=== PATIENT | female | born 1950 | race Caucasian/White ===

== ENCOUNTER → 2017-02-03 | Outpatient (CLI) | payer MEDICARE, OTHER ==
[~2017-02-03] MED LIST: CIPR500T3 PO; METF10002 PO; METR500T PO; OXYC5TAB3 PO
== END | disposition home or self-care (01) ==
LOC: CFH 10:10
PROVIDERS: ATTEND Family Medicine
DX: M25.561 Pain in right knee (principal)

== ENCOUNTER → 2017-09-28 | Outpatient (CLI) | payer MEDICARE, OTHER ==
[2017-09-28 16:07] LABS: BASOPHILS # (AUTO) 0.02 x10^3/uL (0-0.1); BASOPHILS % (AUTO) 0 % (0-1); EOSINOPHILS # (AUTO) 0.42 x10^3/uL (0-0.4); EOSINOPHILS % (AUTO) 7 % (1-7); LYMPHOCYTES # (AUTO) 1.61 x10^3/uL (1-3.4); LYMPHOCYTES % (AUTO) 26 % (22-44); MD NO; MEAN CORPUSCULAR VOLUME 91.3 fL (80-100); MEAN PLATELET VOLUME 9.4 fL (7.4-10.4); MONOCYTES # (AUTO) 0.54 x10^3/uL (0.2-0.8); MONOCYTES % (AUTO) 9 % (2-9); NEUTROPHILS % (AUTO) 58 % (42-75); PLATELET COUNT 135 x10^3/uL (130-400); RED BLOOD COUNT 4.25 x10^6/uL (3.82-5.3); RED CELL DISTRIBUTION WIDTH 13.6 % (9.6-15.2)
[2017-09-28 16:13] LABS: ALANINE AMINOTRANSFERASE 41 U/L (12-78); ALBUMIN 3.7 g/dL (3.4-5.0); ANION GAP 12 mmol/L (5-15); CALCIUM 9.2 mg/dL (8.5-10.1); CHLORIDE 107 mmol/L (98-107); CREATININE 1.28 mg/dL (0.55-1.02)
[2017-09-28 16:15] LABS: ALKALINE PHOSPHATASE 48 U/L (45-117); BILIRUBIN,TOTAL 0.4 mg/dL (0.2-1.0); TOTAL PROTEIN 7.6 g/dL (6.4-8.2)
== END | disposition home or self-care (01) ==
LOC: LAB 15:46
PROVIDERS: ATTEND Family Medicine
DX: R10.9 Unspecified abdominal pain (principal)
CPT/HCPCS: 36415; 80053; 82150; 83690; 85025

== ENCOUNTER → 2018-04-29 | Outpatient (CLI) | payer MEDICARE, OTHER ==
[~2018-04-29] MED LIST changes: +OMNIPAQUE 350 MG/ML, 100ML BOTTLE ONE
== END | disposition home or self-care (01) ==
LOC: CFH 10:44
PROVIDERS: ATTEND Family Medicine
DX: K57.30 Diverticulosis of large intestine without perforation or abscess without bleeding (principal); E11.9 Type 2 diabetes mellitus without complications; Z88.0 Allergy status to penicillin; Z90.49 Acquired absence of other specified parts of digestive tract
CPT/HCPCS: 74177; Q9967

== ENCOUNTER → 2018-05-24 | Outpatient (CLI) | payer MEDICARE, OTHER ==
[~2018-05-24] MED LIST changes: -OMNIPAQUE 350 MG/ML, 100ML BOTTLE ONE
== END | disposition home or self-care (01) ==
LOC: RAD 11:26
PROVIDERS: ATTEND Nurse Practitioner Family
DX: N20.0 Calculus of kidney (principal)
CPT/HCPCS: 78707; A9562

== ENCOUNTER → 2018-07-20 | Outpatient (CLI) | payer MEDICARE, OTHER | END | disposition home or self-care (01) | LOC: CFH 13:28 | PROVIDERS: ATTEND Family Medicine | DX: Z13.820 Encounter for screening for osteoporosis (principal); M51.34 Other intervertebral disc degeneration, thoracic region; N95.9 Unspecified menopausal and perimenopausal disorder; E11.9 Type 2 diabetes mellitus without complications | CPT/HCPCS: 72146; 77080 ==

== ENCOUNTER 2019-02-21 12:58 | Outpatient (CLI) | payer MEDICARE, OTHER ==
[~2019-02-21 12:58] MED LIST changes: +ENAL20TA PO
== END 2019-02-21 23:59 | disposition home or self-care (01) ==
LOC: CFH 12:58
PROVIDERS: ATTEND Family Medicine
DX: Z12.31 Encounter for screening mammogram for malignant neoplasm of breast (principal); M47.814 Spondylosis without myelopathy or radiculopathy, thoracic region; M48.02 Spinal stenosis, cervical region; M51.24 Other intervertebral disc displacement, thoracic region; M85.88 Other specified disorders of bone density and structure, other site
CPT/HCPCS: 72146; 76705; 77063; 77067; 77080

== ENCOUNTER 2019-06-06 11:14 | Outpatient (CLI) | payer MEDICARE, OTHER | END 2019-06-06 23:59 | disposition home or self-care (01) | LOC: CFH 11:14 | PROVIDERS: ATTEND Family Medicine | DX: J18.9 Pneumonia, unspecified organism (principal) ==

== ENCOUNTER 2019-10-06 10:52 | Emergency (ER) | payer MEDICARE, OTHER ==
[~2019-10-06] VITALS: Ht 165.1 cm; Wt 80.8 kg
[2019-10-06 11:48] LABS: BASOPHILS # (AUTO) 0.01 x10^3/uL (0-0.1); BASOPHILS % (AUTO) 0 % (0-1); EOSINOPHILS # (AUTO) 0.11 x10^3/uL (0-0.4); EOSINOPHILS % (AUTO) 1 % (1-7); LYMPHOCYTES # (AUTO) 1.05 x10^3/uL (1-3.4); LYMPHOCYTES % (AUTO) 11 % (22-44); MD NO; MEAN CORPUSCULAR HEMOGLOBIN 31.6 pg (27.0-34.8); MEAN CORPUSCULAR HGB CONC 33.6 g/dL (32.4-35.8); MEAN CORPUSCULAR VOLUME 94.1 fL (80-100); MEAN PLATELET VOLUME 9.8 fL (7.4-10.4); MONOCYTES # (AUTO) 0.94 x10^3/uL (0.2-0.8); MONOCYTES % (AUTO) 10 % (2-9); NEUTROPHILS # (AUTO) 7.13 x10^3/uL (1.8-6.8); NEUTROPHILS % (AUTO) 77 % (42-75); PLATELET COUNT 160 x10^3/uL (130-400); RED BLOOD COUNT 4.43 x10^6/uL (3.82-5.3); RED CELL DISTRIBUTION WIDTH 13.8 % (9.6-15.2)
[2019-10-06 11:59] LABS: ALBUMIN 3.6 g/dL (3.4-5.0); ANION GAP 7 mmol/L (5-15); CALCIUM 10.1 mg/dL (8.5-10.1); CHLORIDE 102 mmol/L (98-107)
[2019-10-06 12:02] LABS: ALANINE AMINOTRANSFERASE 45 U/L (12-78); ALKALINE PHOSPHATASE 65 U/L (45-117); CREATININE 1.49 mg/dL (0.55-1.02); TOTAL PROTEIN 8.2 g/dL (6.4-8.2)
--- NOTE | 2019-10-06 12:11 | NUR ---
Pt ambulated independently to ED room 03 from [facility] in [facility] at this time
[2019-10-06 12:22] LABS: MICROSCOPIC NOT IND
--- NOTE | 2019-10-06 12:30 | NUR ---
Late Entry: Pt ambulated to room 3. Changed into gown, resting in bed with call light in reach, at bedside, given blankets for comfort. Respirations are even and unlabored. Symmetrical chest rise and fall. NAD and denies any additional needs at this time. WCTM
[2019-10-06 12:31] LABS: CULTURE INDICATED? NO
[2019-10-06] MEDS ORDERED: ONDANSETRON 2MG/ML, 2ML IVPush ONE ×2 (13:30→16:30)
[2019-10-06] MEDS ORDERED: ONDANSETRON 2MG/ML, 2ML ONE ×2 (13:32→16:31)
[2019-10-06] MEDS ORDERED: MORPHINE SULFATE 4 MG/ML, 1ML ONE ×2 (13:33→14:50)
[2019-10-06] MEDS: MORPHINE SULFATE 4 MG/ML, 1ML IVPush PRN ×2 (14:00→15:00)
--- NOTE | 2019-10-06 14:10 | NUR ---
BREAK NOTE: IV ACCESS ESTABLISHED. PT. WAS MEDICATED FOR PAIN ORDERED. PT. IS RESTING WITHOUT CONCERNS. PT.'S SIDERAILS REMAIN UP X 2 WITH THE CALL LIGHT IN PLACE.
--- NOTE | 2019-10-06 14:40 | NUR ---
Late Entry: Pt resting in bed, at bedside. Waiting for antibiotics to finish running to dc pt. NAD, denies any additional needs at this time. Pt call light is within reach. WCTM.
[2019-10-06] MEDS ORDERED: METRONIDAZOLE PMX 500MG/100ML 100 ML ONE (14:50)
[2019-10-06] MEDS ORDERED: CEFTRIAXONE PMX 1GM/50ML 50 ML ONE (14:50)
[2019-10-06] MEDS ORDERED: CEFTRIAXONE PMX 1GM/50ML 50 ML IV ONE (15:00)
[2019-10-06] MEDS ORDERED: METRONIDAZOLE PMX 500MG/100ML 100 ML IV ONE (15:00)
--- NOTE | 2019-10-06 15:40 | NUR ---
Late Entry: Pt resting, at bedside. ABX infusion, pt to be dc after antibiotics. NAD, denies additional needs at this time. WCTM
--- NOTE | 2019-10-06 16:40 | NUR ---
Late Entry: Pt resting, at bedside. ABX infusion, pt to be dc after antibiotics. NAD, denies additional needs at this time. WCTM
[2019-10-06 17:59] VITALS: BP 128/73
== END 2019-10-06 18:08 | disposition home or self-care (01) ==
LOC: ED 13:38
DX: K57.32 Diverticulitis of large intestine without perforation or abscess without bleeding (principal); N39.0 Urinary tract infection, site not specified; I10 Essential (primary) hypertension; E11.9 Type 2 diabetes mellitus without complications
CPT/HCPCS: 36415; 74176; 80053; 81003; 85025; 96365; 96366; 96368; 96375; 96376; 99285; J0696; J2270; J2405; 96367

== ENCOUNTER 2020-11-12 07:09 | Observation (INO) | payer MEDICARE, OTHER ==
[~2020-11-12] VITALS: Ht 165.1 cm; Wt 80.8 kg
[~2020-11-12 07:09] MED LIST changes: -CIPR500T3 PO; +CIPR500T4 PO; -ENAL20TA PO; +ENAL20TA9 PO; -OXYC5TAB3 PO; +OXYC5TAB98 PO
[2020-11-12] MEDS ORDERED: ONDANSETRON 2MG/ML, 2ML IVPush ONE (07:30)
[2020-11-12] MEDS ORDERED: SODIUM CHLORIDE 0.9% 1,000ML IVBOLUS ONE ×2 (07:30→09:00)
[2020-11-12] MEDS ORDERED: KETOROLAC 30 MG/1 ML IVPush ONE (07:30)
[2020-11-12] MEDS ORDERED: ONDANSETRON 2MG/ML, 2ML ONE ×2 (07:43→15:17)
[2020-11-12] MEDS ORDERED: KETOROLAC 30 MG/1 ML ONE (07:43)
[2020-11-12] MEDS ORDERED: SODIUM CHLORIDE FLUSH 10ML SYR IVF ONE (08:00)
[2020-11-12] MEDS ORDERED: MORPHINE SULFATE 4 MG/ML, 1ML ONE (08:03)
[2020-11-12 08:13] LABS: BASOPHILS % (AUTO) 1 % (0-1); EOSINOPHILS % (AUTO) 4 % (1-7); LYMPHOCYTES % (AUTO) 19 % (22-44); MEAN CORPUSCULAR HEMOGLOBIN 31.8 pg (27.0-34.8); MEAN CORPUSCULAR HGB CONC 33.8 g/dL (32.4-35.8); MEAN PLATELET VOLUME 8.9 fL (7.4-10.4); MONOCYTES % (AUTO) 12 % (2-9); NEUTROPHILS % (AUTO) 65 % (42-75); PLATELET COUNT 120 x10^3/uL (130-400); RED BLOOD COUNT 3.99 x10^6/uL (3.82-5.3); RED CELL DISTRIBUTION WIDTH 13.7 % (9.6-15.2)
[2020-11-12 08:14] LABS: MD NO
[2020-11-12] MEDS: MORPHINE SULFATE 4 MG/ML, 1ML IVPush PRN ×3 (08:21→10:41)
[2020-11-12 08:23] LABS: ANION GAP 10 mmol/L (5-15); CALCIUM 9.9 mg/dL (8.5-10.1); CHLORIDE 105 mmol/L (98-107); CREATININE 1.52 mg/dL (0.55-1.02)
--- NOTE | 2020-11-12 08:28 | NUR ---
LLQ ABD PAIN/ LL BACK PAIN THAT WOKE PATIENT UP THIS AM. TOOK 400MG IBUPROFEN AT 0700. HX OF DIVERTICULITIS. PROVIDER AT BEDSIDE FOR EVALUATION. PT MEDICATED PER EMAR. VSS. CARNEY. AT BEDSIDE.
[2020-11-12 08:49] LABS: MICROSCOPIC AUTO
[2020-11-12] MEDS ORDERED: OMNIPAQUE 350 MG/ML, 100ML BOTTLE ONE (08:49)
--- NOTE | 2020-11-12 08:51 | NUR ---
PT BACK FROM CT, VSS, NADN, STATES SOME RELIEF IN PAIN
--- NOTE | 2020-11-12 10:06 | NUR ---
FLAVIA SHERMAN AT BEDSIDE FOR EVALUATION, NADN, VSS.
[2020-11-12] MEDS ORDERED: ONDANSETRON 2MG/ML, 2ML IVPush PRN ×2 (10:30→15:00)
[2020-11-12] MEDS ORDERED: ONDANSETRON ODT 4 MG PO PRN (10:30)
[2020-11-12] MEDS ORDERED: DOCUSATE 100 MG CAPSULE PO PRN (10:30)
[2020-11-12] MEDS ORDERED: DEXTROSE 50%, 50ML SYRINGE IVPush PRN (10:30)
[2020-11-12] MEDS ORDERED: HYDROcodone/APAP 5/325 TABLET PO PRN (10:30)
[2020-11-12] MEDS ORDERED: LABETALOL 5MG/ML, 20ML IVPush PRN (10:30)
[2020-11-12] MEDS ORDERED: DEXTROSE 4 GM TAB.CHEW PO PRN (10:30)
[2020-11-12] MEDS ORDERED: ACETAMINOPHEN 325 MG TABLET PO PRN ×2 (10:30→15:00)
[2020-11-12] MEDS ORDERED: ENALAPRILAT 1.25 MG/ML, 2ML IVPush PRN (10:30)
[2020-11-12] MEDS ORDERED: BISACODYL 10 MG SUPP PR PRN (10:30)
[2020-11-12] MEDS ORDERED: MELATONIN 5 MG TABLET PO PRN (10:30)
[2020-11-12] MEDS ORDERED: POLYETHYLENE GLYCOL 17 GM PACKET PO PRN (10:30)
[2020-11-12] MEDS ORDERED: GLUCAGON 1 MG IM PRN (10:30)
--- NOTE | 2020-11-12 10:37 | NUR ---
report called to Archana SCHWAB all question answered
[2020-11-12] MEDS: INSULIN LISPRO 100 UNITS/ML, PEN SQ-INSULIN SCH ×3 (11:00→20:36)
[2020-11-12] MEDS: SODIUM CHLORIDE 0.9% 1,000 ML IV SCH (11:03)
[2020-11-12 11:50] VITALS: BP 160/83
[2020-11-12 12:09] VITALS: BP 160/83
[2020-11-12] MEDS ORDERED: ASPI-963 PO (12:51)
[2020-11-12] MEDS ORDERED: CHOL10003 PO (12:56)
[2020-11-12] MEDS: morphine SULFATE 10 MG/ML, 1ML IVPush PRN ×2 (13:45→23:40)
[2020-11-12] MEDS ORDERED: MIDAZOLAM 1 MG/ML, 2ML ONE (14:19)
[2020-11-12] MEDS ORDERED: FENTANYL PF 250 MCG/5ML ONE (14:19)
[2020-11-12] MEDS ORDERED: PROPOFOL 10 MG/ML, 20ML ONE (14:20)
[2020-11-12] MEDS ORDERED: CHLORHEXIDINE 15 ML UDC PO ONE (14:30)
[2020-11-12] MEDS ORDERED: CEFAZOLIN 1,000 MG ONE ×2 (14:42)
[2020-11-12] MEDS ORDERED: DEXAMETHASONE 4 MG/ML, 1ML ONE (14:42)
[2020-11-12] MEDS ORDERED: FENTANYL PF 100 MCG/2ML IV PRN (15:00)
[2020-11-12] MEDS ORDERED: LABETALOL 5MG/ML, 20ML IV PRN (15:00)
[2020-11-12] MEDS ORDERED: PROMETHAZINE 25 MG/ML, 1ML IVPush PRN (15:00)
[2020-11-12] MEDS ORDERED: HYDROmorphone 1 MG/ML, 1ML INJ IVPush PRN (15:00)
[2020-11-12] MEDS ORDERED: hydrALAzine 20 MG/ML, 1ML IV PRN (15:00)
[2020-11-12] MEDS ORDERED: OXYcodone 5 MG/5 ML ORAL.SOL UDC PO PRN (15:00)
[2020-11-12 19:37] VITALS: BP 144/82
[2020-11-12] MEDS: SODIUM CHLORIDE FLUSH 10ML SYR IVF SCH (20:37)
[2020-11-13 01:27] VITALS: BP 151/85
[2020-11-13 05:17] LABS: BASOPHILS % (AUTO) 0 % (0-1); EOSINOPHILS % (AUTO) 0 % (1-7); LYMPHOCYTES % (AUTO) 15 % (22-44); MEAN CORPUSCULAR HEMOGLOBIN 31.5 pg (27.0-34.8); MEAN PLATELET VOLUME 9.1 fL (7.4-10.4); MONOCYTES % (AUTO) 8 % (2-9); NEUTROPHILS % (AUTO) 78 % (42-75); PLATELET COUNT 135 x10^3/uL (130-400); RED BLOOD COUNT 3.93 x10^6/uL (3.82-5.3); RED CELL DISTRIBUTION WIDTH 13.6 % (9.6-15.2)
[2020-11-13 05:21] LABS: MD NO
[2020-11-13 05:30] LABS: CHLORIDE 108 mmol/L (98-107)
[2020-11-13 05:36] LABS: ANION GAP 6 mmol/L (5-15); CALCIUM 9.1 mg/dL (8.5-10.1); CREATININE 1.33 mg/dL (0.55-1.02)
[2020-11-13] MEDS: SODIUM CHLORIDE 0.9% 1,000 ML IV SCH (05:54)
[2020-11-13 06:26] LABS: TROPONIN I < 0.015 ng/mL (0.000-0.045)
[2020-11-13 07:17] VITALS: BP 139/69
[2020-11-13] MEDS: SODIUM CHLORIDE FLUSH 10ML SYR IVF SCH (07:54)
[2020-11-13] MEDS: INSULIN LISPRO 100 UNITS/ML, PEN SQ-INSULIN SCH ×2 (07:54→11:50)
== END 2020-11-13 12:44 | disposition home or self-care (01) ==
LOC: ED 07:43 → EDIP 09:54 → INTOOBSV 09:54 → 3N 10:32
PROVIDERS: ADMIT Internal Medicine; ATTEND Hospitalist
DX: N13.2 Hydronephrosis with renal and ureteral calculous obstruction (principal); Z20.822 Contact with and (suspected) exposure to COVID-19; I12.9 Hypertensive chronic kidney disease with stage 1 through stage 4 chronic kidney disease, or unspecified chronic kidney disease; E11.22 Type 2 diabetes mellitus with diabetic chronic kidney disease; N18.30 Chronic kidney disease, stage 3 unspecified; E66.9 Obesity, unspecified; K74.60 Unspecified cirrhosis of liver; Z80.41 Family history of malignant neoplasm of ovary; Z90.710 Acquired absence of both cervix and uterus
CPT/HCPCS: 36415; 52353; 74177; 80048; 81001; 82360; 82962; 83690; 84484; 85025; 87077; 87086; 87186; 87635; 88300; 93005; 96361; 96374; 96375; 96376; 99285; C1726; G0378; J0690; J1100; J1815; J2250; J2270; J2405; J2704; J3010; J7030; Q0162; Q9967

== ENCOUNTER 2020-12-19 12:08 | Inpatient (IN) | payer MEDICARE, OTHER ==
[~2020-12-19] VITALS: Ht 165.1 cm; Wt 78.3 kg
[~2020-12-19 12:08] MED LIST changes: +ASPI-963 PO; +CHOL10003 PO
--- NOTE | 2020-12-19 13:47 | NUR ---
SWATCHER: PT TO ROOM FROM [facility]
--- NOTE | 2020-12-19 14:03 | NUR ---
ASSUMED CARE OF PATIENT. PATIENT REPORTS CENTER LOWER ABD PAIN WTIH LOOSE STOOL. VS STABLE. DR DELACRUZ IN ROOM. CALL LIGHT IN PLACE. WILL CONTINUE TO MONITOR.
[2020-12-19 14:08] LABS: BASOPHILS % (AUTO) 0 % (0-1); EOSINOPHILS % (AUTO) 6 % (1-7); LYMPHOCYTES % (AUTO) 17 % (22-44); MEAN CORPUSCULAR HEMOGLOBIN 31.4 pg (27.0-34.8); MEAN CORPUSCULAR HGB CONC 33.6 g/dL (32.4-35.8); MEAN PLATELET VOLUME 9.2 fL (7.4-10.4); MONOCYTES % (AUTO) 10 % (2-9); NEUTROPHILS % (AUTO) 67 % (42-75); PLATELET COUNT 188 x10^3/uL (130-400); RED BLOOD COUNT 4.39 x10^6/uL (3.82-5.3); RED CELL DISTRIBUTION WIDTH 13.9 % (9.6-15.2)
[2020-12-19] MEDS ORDERED: ONDANSETRON 2MG/ML, 2ML ONE (14:08)
[2020-12-19] MEDS ORDERED: HYDROmorphone 1 MG/ML, 1ML INJ ONE (14:08)
[2020-12-19 14:09] LABS: MD NO
[2020-12-19 14:20] LABS: ALANINE AMINOTRANSFERASE 28 U/L (12-78); ALBUMIN 3.5 g/dL (3.4-5.0); ANION GAP 8 mmol/L (5-15); CALCIUM 10.4 mg/dL (8.5-10.1); CHLORIDE 108 mmol/L (98-107); CREATININE 1.55 mg/dL (0.55-1.02)
[2020-12-19 14:22] LABS: ALKALINE PHOSPHATASE 79 U/L (45-117); BILIRUBIN,TOTAL 0.6 mg/dL (0.2-1.0); TOTAL PROTEIN 7.4 g/dL (6.4-8.2)
[2020-12-19] MEDS ORDERED: SODIUM CHLORIDE FLUSH 10ML SYR IVF ONE (14:30)
[2020-12-19] MEDS ORDERED: SODIUM CHLORIDE 0.9% 1,000ML IVBOLUS ONE (14:30)
[2020-12-19] MEDS ORDERED: ONDANSETRON 2MG/ML, 2ML IVPush ONE (14:30)
[2020-12-19] MEDS ORDERED: HYDROmorphone 1 MG/ML, 1ML INJ IV ONE (14:30)
--- NOTE | 2020-12-19 15:09 | NUR ---
PT WENT TO CT
--- NOTE | 2020-12-19 15:22 | NUR ---
PT BACK FROM CT. PT RESTING IN ROOM. AT BEDSIDE. VS STABLE. CALL LIGHT IN PLACE. WILL CONTINUE TO MONITOR.
[2020-12-19] MEDS ORDERED: OMNIPAQUE 350 MG/ML, 100ML BOTTLE ONE (15:23)
--- NOTE | 2020-12-19 16:19 | NUR ---
HOSPITALIST IN ROOM
[2020-12-19 16:21] LABS: MICROSCOPIC INDICATED
[2020-12-19 16:30] VITALS: BP 104/70
[2020-12-19] MEDS ORDERED: METRONIDAZOLE PMX 500MG/100ML 100 ML IV ONE (16:30)
[2020-12-19] MEDS ORDERED: CEFOTETAN PMX 1GM/50ML 50 ML IVPB ONE (16:30)
--- NOTE | 2020-12-19 16:41 | NUR ---
NEW ORDERS FOR ABX PLACED AFTER REPORT WAS CALLED. PT GONE TO FLOOR. ABX NOT GIVEN. HOSEA, PRIMARY RN ON FLOOR CALLED AND AWARE. DR GODWIN ALSO AWARE.
[2020-12-19] MEDS ORDERED: hydrALAzine 20 MG/ML, 1ML IVPush PRN (17:00)
[2020-12-19 17:19] LABS: FREE T4 (FREE THYROXINE) 1.23 ng/dL (0.76-1.46)
[2020-12-19] MEDS: PLEASE ENTER ALLERGIES MC SCH (17:19)
[2020-12-19] MEDS ORDERED: MAGNESIUM SULFATE PMX 4GM/100M 100 ML IVPB ONE (17:30)
[2020-12-19] MEDS: morphine SULFATE 10 MG/ML, 1ML IVPush PRN ×2 (17:35→21:09)
[2020-12-19] MEDS: HEPARIN 5,000 UNITS/ML, 1ML SQ SCH (17:36)
[2020-12-19] MEDS: ACETAMINOPHEN 325 MG TABLET PO PRN (17:36)
[2020-12-19 17:49] VITALS: BP 104/70
[2020-12-19] MEDS: CEFTRIAXONE 2 GM in DEXTROSE 5% 50 ML IVPB SCH (18:17)
[2020-12-19] MEDS: METRONIDAZOLE PMX 500MG/100ML 100 ML IV SCH (19:30)
[2020-12-19] MEDS: SODIUM CHLORIDE FLUSH 10ML SYR IVF SCH (19:30)
[2020-12-19 19:51] VITALS: BP 115/59
[2020-12-19] MEDS: INSULIN LISPRO 100 UNITS/ML, PEN SQ-INSULIN SCH (20:57)
[2020-12-20 00:33] VITALS: BP 118/71
[2020-12-20 00:50] LABS: CLOSTRIDIUM DIFFICILE ANTIGEN POSITIVE; CLOSTRIDIUM DIFFICILE TOXIN NEGATIVE (Negative)
[2020-12-20] MEDS: PLEASE ENTER ALLERGIES MC SCH (01:03)
[2020-12-20] MEDS: HEPARIN 5,000 UNITS/ML, 1ML SQ SCH ×3 (01:34→15:40)
[2020-12-20] MEDS: METRONIDAZOLE PMX 500MG/100ML 100 ML IV SCH ×3 (03:56→19:44)
[2020-12-20] MEDS: morphine SULFATE 10 MG/ML, 1ML IVPush PRN ×3 (04:01→20:36)
[2020-12-20 05:42] LABS: BASOPHILS % (AUTO) 0 % (0-1); EOSINOPHILS % (AUTO) 9 % (1-7); LYMPHOCYTES % (AUTO) 18 % (22-44); MEAN CORPUSCULAR HGB CONC 34.6 g/dL (32.4-35.8); MEAN PLATELET VOLUME 9.4 fL (7.4-10.4); MONOCYTES % (AUTO) 12 % (2-9); NEUTROPHILS % (AUTO) 61 % (42-75); PLATELET COUNT 116 x10^3/uL (130-400); RED BLOOD COUNT 3.53 x10^6/uL (3.82-5.3); RED CELL DISTRIBUTION WIDTH 13.7 % (9.6-15.2)
[2020-12-20 05:49] LABS: CHLORIDE 107 mmol/L (98-107)
[2020-12-20 05:52] LABS: MD NO
[2020-12-20 06:01] LABS: ANION GAP 9 mmol/L (5-15); CALCIUM 8.9 mg/dL (8.5-10.1); CREATININE 1.33 mg/dL (0.55-1.02)
[2020-12-20] MEDS: INSULIN LISPRO 100 UNITS/ML, PEN SQ-INSULIN SCH ×4 (06:17→20:34)
[2020-12-20 06:40] VITALS: BP 109/67
[2020-12-20] MEDS: PANTOPRAZOLE 40MG TABLET PO SCH (07:48)
[2020-12-20] MEDS: LACTATED RINGERS 1,000 ML IV SCH ×2 (08:32→22:03)
[2020-12-20] MEDS: SODIUM CHLORIDE FLUSH 10ML SYR IVF SCH ×2 (08:38→20:34)
[2020-12-20] MEDS: SIMETHICONE 125 MG CHEW TAB PO SCH ×3 (11:42→20:34)
[2020-12-20 13:36] VITALS: BP 124/64
[2020-12-20] MEDS: ACETAMINOPHEN 325 MG TABLET PO PRN (15:40)
[2020-12-20] MEDS: CEFTRIAXONE 2 GM in DEXTROSE 5% 50 ML IVPB SCH (17:14)
[2020-12-20 19:40] VITALS: BP 105/59
[2020-12-20] MEDS: ONDANSETRON 2MG/ML, 2ML IVPush PRN (22:02)
[2020-12-21] MEDS: HEPARIN 5,000 UNITS/ML, 1ML SQ SCH ×3 (01:13→16:28)
[2020-12-21 02:24] VITALS: BP 127/59
[2020-12-21] MEDS: METRONIDAZOLE PMX 500MG/100ML 100 ML IV SCH ×3 (03:30→19:35)
[2020-12-21 06:01] LABS: BASOPHILS % (AUTO) 1 % (0-1); EOSINOPHILS % (AUTO) 19 % (1-7); LYMPHOCYTES % (AUTO) 23 % (22-44); MD NO; MEAN CORPUSCULAR HEMOGLOBIN 31.7 pg (27.0-34.8); MEAN CORPUSCULAR HGB CONC 34.1 g/dL (32.4-35.8); MEAN PLATELET VOLUME 9.6 fL (7.4-10.4); MONOCYTES % (AUTO) 14 % (2-9); NEUTROPHILS % (AUTO) 45 % (42-75); PLATELET COUNT 104 x10^3/uL (130-400); RED BLOOD COUNT 3.56 x10^6/uL (3.82-5.3); RED CELL DISTRIBUTION WIDTH 13.6 % (9.6-15.2)
[2020-12-21 06:14] LABS: ANION GAP 6 mmol/L (5-15); CALCIUM 8.4 mg/dL (8.5-10.1); CHLORIDE 111 mmol/L (98-107)
[2020-12-21 06:15] LABS: CREATININE 1.23 mg/dL (0.55-1.02)
[2020-12-21] MEDS: INSULIN LISPRO 100 UNITS/ML, PEN SQ-INSULIN SCH ×4 (07:41→21:00)
[2020-12-21 07:54] VITALS: BP 132/73
[2020-12-21] MEDS: SODIUM CHLORIDE FLUSH 10ML SYR IVF SCH ×2 (09:00→21:09)
[2020-12-21] MEDS: ACETAMINOPHEN 325 MG TABLET PO PRN ×3 (09:33→21:10)
[2020-12-21] MEDS: PANTOPRAZOLE 40MG TABLET PO SCH (09:35)
[2020-12-21] MEDS: SIMETHICONE 125 MG CHEW TAB PO SCH ×4 (09:38→21:09)
[2020-12-21] MEDS: LACTATED RINGERS 1,000 ML IV SCH (11:40)
[2020-12-21 12:19] VITALS: BP 127/61
[2020-12-21] MEDS: CEFTRIAXONE 2 GM in DEXTROSE 5% 50 ML IVPB SCH (17:04)
[2020-12-21 19:39] VITALS: BP 137/63
[2020-12-21] MEDS: ONDANSETRON 2MG/ML, 2ML IVPush PRN (21:10)
[2020-12-22] MEDS: HEPARIN 5,000 UNITS/ML, 1ML SQ SCH (00:45)
[2020-12-22] MEDS: LACTATED RINGERS 1,000 ML IV SCH (00:58)
[2020-12-22 00:59] VITALS: BP 140/58
[2020-12-22] MEDS: METRONIDAZOLE PMX 500MG/100ML 100 ML IV SCH ×3 (03:30→19:26)
[2020-12-22] MEDS: MELATONIN 5 MG TABLET PO PRN ×2 (03:35→21:35)
[2020-12-22 05:36] LABS: CHLORIDE 110 mmol/L (98-107)
[2020-12-22 05:37] LABS: BASOPHILS % (AUTO) 0 % (0-1); EOSINOPHILS % (AUTO) 35 % (1-7); LYMPHOCYTES % (AUTO) 13 % (22-44); MEAN CORPUSCULAR HEMOGLOBIN 31.9 pg (27.0-34.8); MEAN CORPUSCULAR HGB CONC 34.5 g/dL (32.4-35.8); MEAN PLATELET VOLUME 9.2 fL (7.4-10.4); MONOCYTES % (AUTO) 10 % (2-9); NEUTROPHILS % (AUTO) 41 % (42-75); PLATELET COUNT 100 x10^3/uL (130-400); RED BLOOD COUNT 3.52 x10^6/uL (3.82-5.3); RED CELL DISTRIBUTION WIDTH 13.6 % (9.6-15.2)
[2020-12-22 05:43] LABS: ALANINE AMINOTRANSFERASE 19 U/L (12-78); ALBUMIN 2.8 g/dL (3.4-5.0); ALKALINE PHOSPHATASE 69 U/L (45-117); ANION GAP 8 mmol/L (5-15); BILIRUBIN,TOTAL 0.3 mg/dL (0.2-1.0); CALCIUM 8.8 mg/dL (8.5-10.1); CREATININE 1.25 mg/dL (0.55-1.02); TOTAL PROTEIN 6.1 g/dL (6.4-8.2)
[2020-12-22 06:46] LABS: MD SCAN
[2020-12-22] MEDS: INSULIN LISPRO 100 UNITS/ML, PEN SQ-INSULIN SCH ×4 (07:00→21:34)
[2020-12-22] MEDS: SIMETHICONE 125 MG CHEW TAB PO SCH ×4 (08:07→21:34)
[2020-12-22] MEDS: PANTOPRAZOLE 40MG TABLET PO SCH (08:07)
[2020-12-22 08:24] VITALS: BP 124/58
[2020-12-22] MEDS: SODIUM CHLORIDE FLUSH 10ML SYR IVF SCH ×2 (09:34→19:26)
[2020-12-22 13:02] VITALS: BP 141/58
[2020-12-22] MEDS: CEFTRIAXONE 2 GM in DEXTROSE 5% 50 ML IVPB SCH (17:11)
[2020-12-22 20:00] VITALS: BP 128/50
[2020-12-22] MEDS: ONDANSETRON 2MG/ML, 2ML IVPush PRN (21:41)
[2020-12-23] MEDS: ACETAMINOPHEN 325 MG TABLET PO PRN (01:05)
[2020-12-23 01:15] VITALS: BP 134/60
[2020-12-23] MEDS: METRONIDAZOLE PMX 500MG/100ML 100 ML IV SCH ×2 (03:08→11:11)
[2020-12-23 05:48] LABS: BASOPHILS % (AUTO) 1 % (0-1); EOSINOPHILS % (AUTO) 29 % (1-7); LYMPHOCYTES % (AUTO) 22 % (22-44); MEAN CORPUSCULAR HEMOGLOBIN 31.5 pg (27.0-34.8); MEAN CORPUSCULAR HGB CONC 34.3 g/dL (32.4-35.8); MEAN PLATELET VOLUME 9.2 fL (7.4-10.4); MONOCYTES % (AUTO) 13 % (2-9); NEUTROPHILS % (AUTO) 35 % (42-75); PLATELET COUNT 107 x10^3/uL (130-400); RED BLOOD COUNT 3.53 x10^6/uL (3.82-5.3); RED CELL DISTRIBUTION WIDTH 13.7 % (9.6-15.2)
[2020-12-23 05:51] LABS: MD NO
[2020-12-23 05:59] LABS: ALANINE AMINOTRANSFERASE 20 U/L (12-78); ALBUMIN 2.7 g/dL (3.4-5.0); ANION GAP 7 mmol/L (5-15); CALCIUM 8.3 mg/dL (8.5-10.1); CHLORIDE 113 mmol/L (98-107); CREATININE 1.19 mg/dL (0.55-1.02)
[2020-12-23 06:02] LABS: ALKALINE PHOSPHATASE 69 U/L (45-117); BILIRUBIN,TOTAL 0.3 mg/dL (0.2-1.0); TOTAL PROTEIN 5.7 g/dL (6.4-8.2)
[2020-12-23] MEDS ORDERED: POTASSIUM CHLORIDE 20 MEQ TAB.ER.PRT PO ONE (07:00)
[2020-12-23] MEDS: INSULIN LISPRO 100 UNITS/ML, PEN SQ-INSULIN SCH ×2 (07:00→11:00)
[2020-12-23 07:29] VITALS: BP 141/54
[2020-12-23] MEDS ORDERED: LACTATED RINGERS 1,000 ML IV SCH (08:00)
[2020-12-23] MEDS: PANTOPRAZOLE 40MG TABLET PO SCH (08:03)
[2020-12-23] MEDS: SIMETHICONE 125 MG CHEW TAB PO SCH ×2 (08:03→11:11)
[2020-12-23] MEDS: SODIUM CHLORIDE FLUSH 10ML SYR IVF SCH (10:53)
[2020-12-23] MEDS ORDERED: PANT40TA6 PO (11:34)
[2020-12-23] MEDS ORDERED: METR-90 PO (11:36)
[2020-12-23] MEDS ORDERED: CIPR500T4 PO (11:38)
== END 2020-12-23 13:20 | disposition home or self-care (01) | DRG 392 ==
LOC: ED 15:00 → EDIP 15:47 → 4NE 16:45 → ED 16:46 → 4NE 16:52 → 3N 12-20 10:01
PROVIDERS: ADMIT Emergency Medicine; ATTEND Hospitalist
DX: K57.32 Diverticulitis of large intestine without perforation or abscess without bleeding (principal); E87.2 Acidosis; D69.6 Thrombocytopenia, unspecified; E11.22 Type 2 diabetes mellitus with diabetic chronic kidney disease; E83.52 Hypercalcemia; I12.9 Hypertensive chronic kidney disease with stage 1 through stage 4 chronic kidney disease, or unspecified chronic kidney disease; K21.9 Gastro-esophageal reflux disease without esophagitis; M10.9 Gout, unspecified; M25.532 Pain in left wrist; D72.829 Elevated white blood cell count, unspecified; N18.30 Chronic kidney disease, stage 3 unspecified; Z87.442 Personal history of urinary calculi; Z90.710 Acquired absence of both cervix and uterus; Z90.49 Acquired absence of other specified parts of digestive tract; Z88.5 Allergy status to narcotic agent; Z88.0 Allergy status to penicillin
CPT/HCPCS: 36415; 74177; 80048; 80053; 81001; 82274; 82962; 83036; 83690; 83735; 84100; 84439; 84443; 85025; 87324; 87493; 89055; 96361; 96374; 96375; 99285; G0378; J0696; J1170; J1644; J2405; Q9967; J1815; J2270; J3475; J7030; J7120

== ENCOUNTER → 2021-03-05 | Outpatient (CLI) | payer MEDICARE, OTHER ==
[~2021-03-05] MED LIST changes: +METR-90 PO; +PANT40TA6 PO
== END | disposition home or self-care (01) ==
LOC: RAD 14:53
PROVIDERS: ATTEND Family Medicine
DX: M19.041 Primary osteoarthritis, right hand (principal); M25.741 Osteophyte, right hand; M65.341 Trigger finger, right ring finger; R22.32 Localized swelling, mass and lump, left upper limb; M79.641 Pain in right hand; M25.532 Pain in left wrist